=== PATIENT | female | born 1960 ===

== ENCOUNTER 2024-11-19 06:00 | Day surgery (SDC) | payer OTHER ==
[~2024-11-19 06:00] MED LIST: COZAAR50 MG PO; CRESTOR40 MG; LEVOTHYROXINE25 MC2 PO; TOPROL XL50 M1 PO
[2024-11-19] MEDS ORDERED: GENTAMICIN SULFATE 40 MG/ML VIAL IR ONE (10:15)
[2024-11-19] MEDS ORDERED: CEFAZOLIN SODIUM 1,000 MG VIAL IV ONE (10:15)
[2024-11-19] MEDS ORDERED: CHLORHEXIDINE GLUCONATE 120 ML BOTTLE TOP ONE (10:15)
[2024-11-19] MEDS ORDERED: LIDOCAINE HCL 1%/EPINEPHRINE 20ML VIAL IJ ONE (10:15)
[2024-11-19] MEDS ORDERED: MACROBID 100 M100 MG PO (10:23)
[2024-11-19] MEDS ORDERED: TRAM1TAB98 PO (10:24)
== END 2024-11-19 15:40 | disposition home or self-care (01) ==
LOC: CIR.AMB 06:00
PROVIDERS: ATTEND Obstetrics & Gynecology Gynecology
DX: N81.11 Cystocele, midline (principal); I10 Essential (primary) hypertension; E03.8 Other specified hypothyroidism